=== PATIENT | female | born 1990 | race African-American/Black ===

== ENCOUNTER 2022-04-12 11:11 | Emergency (ER) | payer SELFPAY ==
[~2022-04-12] VITALS: Ht 157.5 cm; Wt 61.3 kg
[2022-04-12 11:35] VITALS: BP 112/78
[2022-04-12] MEDS ORDERED: SODIUM CHLORIDE 0.9% 1,000 ML IVB ONE (12:30)
[2022-04-12 14:46] LABS: Salicylate < 1.7 mg/dL (2.8-20.0)
[2022-04-12 15:22] LABS: Acetaminophen < 2.0 ug/mL (10-30)
== END 2022-04-12 20:44 | disposition left against medical advice (07) ==
LOC: ER 11:11
DX: R41.82 Altered mental status, unspecified (principal); F19.10 Other psychoactive substance abuse, uncomplicated; R10.2 Pelvic and perineal pain; Z53.29 Procedure and treatment not carried out because of patient's decision for other reasons
CPT/HCPCS: 36415; 80320; 80329; 84702; 93005